=== PATIENT | female | born 1955 | race Caucasian/White ===

== ENCOUNTER → 2020-07-24 | Outpatient (CLI) | payer OTHER ==
[~2020-07-24] MED LIST: CARISOPRODOL 3350 M1 PO; DULOXETINE HCL30 MG PO; NORCO 10-325 T1 EACH PO; PROLIA60 MG/1 ML SUBQ
[2020-07-24 11:34] LABS: URINE BILIRUBIN NEGATIVE (Negative); URINE BLOOD NEGATIVE (Negative); URINE CLARITY CLEAR; URINE COLOR YELLOW; URINE GLUCOSE-RANDOM* NEGATIVE (Negative); URINE KETONES NEGATIVE (Negative); URINE LEUKOCYTES-REFLEX TRACE (Negative); URINE NITRITE-REFLEX NEGATIVE (Negative); URINE PROTEIN (DIPSTICK) NEGATIVE (Negative); URINE SPECIFIC GRAVITY 1.025 (1.005-1.035); URINE UROBILINOGEN 0.2 E.U./dl (0.2-1.0)
[2020-07-24 11:54] LABS: HEMOGLOBIN 11.2 gm/dL (12.0-15.0); MCH 28.7 pg (26.0-34.0); MCHC 32.2 g/dL (28.0-37.0); MCV 89.2 fL (80.0-100.0); RBC 3.92 mil/uL (4.20-5.00); RDW 15.9 % (10.5-14.5); WBC 5.6 thou/uL (4.0-11.0)
[2020-07-24 12:05] LABS: ALBUMIN 3.2 g/dL (3.4-5.0); CREATININE 0.8 mg/dL (0.6-1.0); POTASSIUM 4.2 mmol/L (3.5-5.1)
[2020-07-24 12:08] LABS: INR 0.89; PROTIME 9.8 Seconds (10.5-12.1)
--- NOTE | 2020-07-25 06:51 | EKG ---
[address] [place] [address] ELECTROCARDIOGRAM REPORT Name: PETE WALTER Room #: REG Jeff Saldaña#: [id number] Admission: 07/24/20 Attend Phys: Chepe Cancino MD Discharge: Date of : 51 Report #: [id number] [facility] Test Date: 2020-07-24 Test Time: 11:45:17 Pat Name: PETE WALTER Department: Room: Gender: F Ribbon Tier: IZAIAH : 1955 Requested By: Chepe Cancino Order Number: [id number] MD: Nabil Philip Measurements Intervals [place] Rate: 82 P: 54 UT: 125 QRS: 28 QRSD: 88 T: 35 QT: 362 QTc: 423 Interpretive Statements Sinus rhythm Atrial premature complexes Compared to ECG 02/11/1993 13:20:00 Atrial premature complex(es) now present Sinus arrhythmia no longer present Myocardial infarct finding no longer present Electronically Signed On 07-25-2020 6:51:09 CDT by Nabil Philip [email or web address] <ELECTRONICALLY SIGNED> By: Nabil Philip MD, [facility] 07/25/20 [id number] Nabil Philip MD, FAC /EPI
== END ==
LOC: PAC 10:30
PROVIDERS: ATTEND Orthopaedic Surgery
DX: Z01.812 Encounter for preprocedural laboratory examination (principal); Z01.810 Encounter for preprocedural cardiovascular examination; I49.1 Atrial premature depolarization; M17.11 Unilateral primary osteoarthritis, right knee

== ENCOUNTER 2020-07-30 10:30 | Observation (INO) | payer OTHER ==
[~2020-07-30] VITALS: Ht 152.4 cm; Wt 68.0 kg
[2020-07-30] VITALS (9 sets, daily range): BP systolic 101–128; BP diastolic 57–73
--- NOTE | ~2020-07-30 | O ---
[facility] [place] [address] OPERATIVE REPORT Name: PETE WALTER BRAXTON Room #: 447-P REG [facility] M.R.#: [id number] Admission: 07/30/20 Attend Phys: Chepe Cancino MD Discharge: Date of : 51 Report #: [id number] THIS REPORT FOR: cc: Buzz Peralta MD, Steven A. MD Abraham, Scott M. MD ~ DOC #: [id number] Chepe Cancino MD DATE OF SERVICE: 07/30/2020 PREOPERATIVE DIAGNOSIS: Right knee osteoarthritis. POSTOPERATIVE DIAGNOSIS: Right knee osteoarthritis. PROCEDURE: Right total knee arthroplasty using Navio robotic virtual assistant. SURGEON: Chepe Cancino MD. ANESTHESIA: LMA with adductor canal block. IMPLANTS: De and Nephew size 4 Journey II BCS cobalt chrome femur, a size 3 tibia, size 12 polyethylene, and size 32 patella. TOURNIQUET TIME: 51 minutes. ESTIMATED BLOOD LOSS: 25 mL COMPLICATIONS: None. SPECIMENS: None. CONDITION UPON LEAVING THE OR: Stable. INDICATIONS FOR PROCEDURE: The patient is a 65-year-old female with severe right knee osteoarthritis. She had failed conservative measures for this; and after discussion with her, she elected for right total knee arthroplasty. DESCRIPTION OF PROCEDURE: Risks, benefits, alternatives, and complications were discussed in detail with the patient including, but not limited to, risk of anesthesia, risk of damage to nerves, arteries, blood vessels, risk for infection, bleeding, risk for continued knee pain, and need for reoperation. Informed consent was obtained from the patient. Right knee was appropriately marked in the preoperative holding area. IV clindamycin was given for preoperative antibiotics. She was brought to the operating room and placed in the supine position on the operating room table. LMA anesthesia was induced without complication. Tourniquet was placed on the right thigh. Right lower [address] [address] OPERATIVE REPORT Name: PETE WALTER BRAXTON Room #: 447-P REG [facility].#: [id number] Admission: 07/30/20 Attend Phys: Chepe Cancino MD Discharge: Date of : 51 Report #: [id number] extremity was prepped and draped in normal sterile fashion. Timeout was performed properly identifying the patient and procedure as well as the instrumentation and implants. All in the operating room were in agreement. Right lower extremity was exsanguinated. Tourniquet was inflated. Tourniquet time was 51 minutes. Standard midline approach to the knee was made with 10 blade through the skin. Dissection was taken down sharply to the fascia and deep flaps were developed medially and laterally. Fresh 10 blade was used to make a medial parapatellar arthrotomy and the knee was inspected. There was severe tricompartmental osteoarthritis. ACL and PCL were removed sharply. Reference pins were placed in the femur and the tibia. The knee was digitally mapped using the Livescribe robotic system. We sized the size 4 femur, size 3 tibia with a 10 spacer. After acceptance of the intraoperative plan, the distal femoral cut was made with Navio bur. Distal femoral cutting block was pinned in place and chamfer cuts were made. Attention was turned to the tibia. Remainder of the menisci were removed with Bovie cautery. Tibial resection guide was pinned in place using Navio for placement and tibial resection was made. Flexion and extension gaps were checked and found to have good balance in flexion and extension both medially and laterally. Tibia was sized and found to be a size 3. A size 3 tibial trial was placed, pinned and punched. Size 4 femoral trial was placed and the box cut was made. This was then trialed with a size 10 up to a size 12 polyethylene. Size 12 polyethylene demonstrated the best stability with 1-2 mm laxity medially and laterally throughout range of motion of the knee. 9 mm of bone was resected from the posterior surface of the patella and a size 32 patellar trial button was placed. Knee was taken through range of motion, found to be stable, found to have good patellar tracking. Trial components were removed. Bone ends were thoroughly irrigated with normal saline. Final size 3 tibia, size 4 Journey II BCS cobalt chrome femur, and a size 32 patella were cemented in place using standard cementation techniques. While the cement cured, a periarticular injection consisting of morphine, ropivacaine, epinephrine, Toradol was placed around the knee joint capsule. After the cement cured, tourniquet was deflated. Hemostasis was obtained with Bovie cautery. Final size 12 polyethylene was placed. A gram of vancomycin was placed deep in the joint. Fascia was closed with 0 Vicryl. Skin was closed with 2-0 Vicryl. Skin miguel and a CHENTE dressing was applied. The patient tolerated this procedure well and went to recovery room under care of anesthesia postoperatively. Chepe Cancino MD [facility] [address] [address] OPERATIVE REPORT Name: PETE WALTER JULY Room #: 447-P REG [facility] Piper#: [id number] Admission: 07/30/20 Attend Phys: Chepe Cancino MD Discharge: Date of : 51 Report #: [id number] By: [id number] Chepe Cancino MD /nt
--- NOTE | 2020-07-30 19:46 | NUR ---
RN ADMITTED PT ABOUT 1700PM, PT HAS R TOTAL KNEE REPLACENET TODAY, PT IS A&OX4, PT'S VS ARE STABLE, PT 'S PAIN CAN CONTORL , PT IS TOLERATED REGULAR DIET , PT'S R KNEE DRESSING IS CDI, PT GETS UP WITH ASSIT TO BSC TO VOID,
--- NOTE | 2020-07-31 01:05 | NUR ---
PT ALERT AND ORIENTED X 4. IV INFUSING ORDERED. RIGHT KNEE DRESSING C/D/I. ICE TO RIGHT KNEE. PT C/O PAIN IN RIGHT KNEE. OXYCODONE GIVEN ORDERED WITH ADEQUATE PAIN RELIEF VERVALIZED. PT APPEARS TO BE SLEEPING ON HOURLY ROUNDS.
[2020-07-31 03:19] VITALS: BP 99/62
[2020-07-31 03:27] VITALS: BP 99/62
[2020-07-31 06:10] LABS: HEMATOCRIT 27.5 % (37.0-47.0); HEMOGLOBIN 9.2 gm/dL (12.0-15.0); MCH 29.9 pg (26.0-34.0); MCHC 33.4 g/dL (28.0-37.0); MCV 89.5 fL (80.0-100.0); RBC 3.07 mil/uL (4.20-5.00); RDW 15.8 % (10.5-14.5); WBC 8.7 thou/uL (4.0-11.0)
[2020-07-31 07:50] VITALS: BP 94/60
--- NOTE | 2020-07-31 09:24 | NUR ---
ASSESSMENT: CM REVIEWED CHART AND SPOKE WITH PATIENT. PT IS ALERT AND ORIENTED X4. PT IS S/P RIGHT TKA. PT REPORTS LIVING IN AN APT ALONE. PT REPORTS HAVING ABOUT 5 STEPS DOWN IN ORDER TO GET IN HER APT AND HAS BILATERAL HANDRAILS. PT STATES SHE HAS A CANE AND A WALKER AT HOME AND MULTIPLE GRAB BARS IN HER SHOWER. PT REPORTS THAT SHE HAS OUTPATIENT THERAPY ARRANGED AT PT [facility] TO BEGIN TOMORROW 08/01/20 AND REPORTS HER DAUGHTER IN LAW WILL DRIVE HER TO AND FROM. PT REPORTS HER SON AND DAUGHTER IN LAW ARE VERY SUPPORTIVE. PT IS TO WORK WITH THERAPY TODAY. CM WILL CONTINUE TO FOLLOW.
[2020-07-31 12:03] VITALS: BP 94/60
--- NOTE | 2020-07-31 13:10 | NUR ---
D/C ORDERS IN, PT EDUCATED ON DISCHARGE INSTRUCTION POST KNEE REPLACEMENT AND HOW TO USE POLAR ICE MACHINE. IV D/C. PT BELONGINGS PACKED AND WITH PT. PT CALLED PHARMACY AND VERIFIED WITH THEM ABOUT D/C MEDS. WAITING ON PT RIDE ND WILL TAKEN PATIENT DOWN VIA WHEEL CHAIR
== END 2020-07-31 15:47 | disposition home or self-care (01) ==
LOC: OR 10:30 → 4S 16:31 → OR 16:32 → 4S 16:32
PROVIDERS: ADMIT Orthopaedic Surgery; ATTEND Orthopaedic Surgery
DX: M17.11 Unilateral primary osteoarthritis, right knee (principal); M54.9 Dorsalgia, unspecified; M17.12 Unilateral primary osteoarthritis, left knee; Z87.891 Personal history of nicotine dependence; Z79.899 Other long term (current) drug therapy; Z87.442 Personal history of urinary calculi
CPT/HCPCS: 27447; S2900; 10102; 50010; 50101; 50415; 50954; 51130; 51225; 51320; 51412; 53000; 53078; 56527; 56528; 57095; 57103; 57110; 57127; 57180; 58239; 62110; 62900; 70005